=== PATIENT | female | born 1955 | race Caucasian/White ===

== ENCOUNTER 2017-04-09 23:26 | Emergency (ER) | payer OTHER ==
[~2017-04-09] VITALS: Ht 152.4 cm; Wt 78.9 kg
[~2017-04-09 23:26] MED LIST: ACT15 PO; AMOXICILLIN500 M1 PO; ANTIVERT/2525 MG PO; CARAFATE1 GM PO; ELESTAT5 ML OU; FLO4 PO; GLIPIZIDE10 MG PO; IBUPROFEN400 MG PO; LEXAPRO10 MG PO; LIPOFLAVONOID PO; LORATADINE10 MG PO; LOSARTAN POTASS25 M1 PO; METFORMIN HCL1000 MG PO; NIASPAN500 MG PO; PEPCID20 MG PO; PRILOSEC20 MG PO; RANITIDINE 150150 MG PO; ZOCOR20 MG PO
[2017-04-10 02:18] VITALS: BP 110/68
== END 2017-04-10 02:18 | disposition home or self-care (01) ==
LOC: ED 23:26
DX: H81.10 Benign paroxysmal vertigo, unspecified ear (principal); G44.209 Tension-type headache, unspecified, not intractable; E78.00 Pure hypercholesterolemia, unspecified; I10 Essential (primary) hypertension; M19.90 Unspecified osteoarthritis, unspecified site; E11.9 Type 2 diabetes mellitus without complications; Z79.84 Long term (current) use of oral hypoglycemic drugs
CPT/HCPCS: J8597; Q0162

== ENCOUNTER 2020-04-10 22:16 | Emergency (ER) | payer OTHER ==
[~2020-04-10] VITALS: Ht 162.6 cm; Wt 90.7 kg
[2020-04-11 01:25] VITALS: BP 139/65
== END 2020-04-11 01:25 | disposition home or self-care (01) ==
LOC: ED 22:16
DX: S40.021A Contusion of right upper arm, initial encounter (principal); I10 Essential (primary) hypertension; E11.9 Type 2 diabetes mellitus without complications; E78.00 Pure hypercholesterolemia, unspecified; M19.90 Unspecified osteoarthritis, unspecified site; W01.0XXA Fall on same level from slipping, tripping and stumbling without subsequent striking against object, initial encounter; Y93.89 Activity, other specified; Y92.89 Other specified places as the place of occurrence of the external cause; Y99.8 Other external cause status